=== PATIENT | female | born 1980 | race American Indian/Alaskan Native ===

== ENCOUNTER 2025-04-08 09:22 | Emergency (ER) | payer MEDICAID ==
[2025-04-08] MEDS: Ketorolac 30 MG/ML SDV IM ONE (09:46)
[2025-04-08] MEDS: Orphenadrine 60 MG/2 ML Inj IM ONE (09:54)
== END 2025-04-08 10:18 | disposition home or self-care (01) ==
LOC: DL.ED 09:22
DX: M54.41 Lumbago with sciatica, right side (principal); Z88.8 Allergy status to other drugs, medicaments and biological substances
CPT/HCPCS: 96372; 99283; A9270; J1885; J2360